=== PATIENT | female | born 1980 | race Caucasian/White ===

== ENCOUNTER 2023-03-17 13:37 | Outpatient (REF) | payer OTHER, SELFPAY | END 2023-03-17 13:38 | disposition home or self-care (01) | LOC: HO.MDS 13:37 | PROVIDERS: Visit Provider Internal Medicine | DX: O99.013 Anemia complicating pregnancy, third trimester (principal); D50.9 Iron deficiency anemia, unspecified | CPT/HCPCS: 96365; J2916 ==

== ENCOUNTER 2023-03-23 08:06 | Outpatient (REF) | payer OTHER, SELFPAY | END 2023-03-23 08:07 | disposition home or self-care (01) | LOC: HO.MDS 08:06 | PROVIDERS: Visit Provider Internal Medicine | DX: O99.019 Anemia complicating pregnancy, unspecified trimester (principal); D50.9 Iron deficiency anemia, unspecified; Z3A.00 Weeks of gestation of pregnancy not specified | CPT/HCPCS: 96365; J2916 ==

== ENCOUNTER 2023-04-01 12:33 | Outpatient (REF) | payer OTHER, SELFPAY | END 2023-04-01 12:34 | disposition home or self-care (01) | LOC: HO.MDS 12:33 | PROVIDERS: Visit Provider Internal Medicine | DX: O99.019 Anemia complicating pregnancy, unspecified trimester (principal); D50.9 Iron deficiency anemia, unspecified | CPT/HCPCS: 96365; J2916 ==

== ENCOUNTER 2023-04-08 12:00 | Outpatient (REF) | payer OTHER, SELFPAY | END 2023-04-08 12:01 | disposition home or self-care (01) | LOC: HO.MDS 12:00 | PROVIDERS: Visit Provider Internal Medicine | DX: O99.019 Anemia complicating pregnancy, unspecified trimester (principal); D50.9 Iron deficiency anemia, unspecified | CPT/HCPCS: 96365; J2916 ==